=== PATIENT | male | born 1980 | race Caucasian/White ===

== ENCOUNTER 2016-10-21 21:35 | Observation (INO) | payer OTHER ==
[~2016-10-21] VITALS: Ht 180.3 cm; Wt 87.6 kg
[2016-10-22 05:54] LABS: HEMOGLOBIN 15.5 gm/dl (14.0-17.5); RED BLOOD COUNT 5.31 M/UL (4.20-5.50); WHITE BLOOD COUNT 15.1 K/UL (4.5-11.0)
[2016-10-23] MEDS ORDERED: NORCO 5-325 TA1 EACH PO (09:24)
== END 2016-10-23 11:05 | disposition home or self-care (01) ==
LOC: ER1 21:35 → M/S 22:50 → ZEROF 22:50 → M/S 10-22 01:08
PROVIDERS: ADMIT Orthopaedic Surgery
PROC: 0PSJ04Z Reposition Left Radius with Internal Fixation Device, Open Approach (ICD-10-PCS; principal; 2016-10-22 18:49)
DX: S52.502A Unspecified fracture of the lower end of left radius, initial encounter for closed fracture (principal); V38.0XXA Driver of three-wheeled motor vehicle injured in noncollision transport accident in nontraffic accident, initial encounter; Y93.I9 Activity, other involving external motion; Y92.838 Other recreation area as the place of occurrence of the external cause; H91.90 Unspecified hearing loss, unspecified ear; R47.9 Unspecified speech disturbances; F17.210 Nicotine dependence, cigarettes, uncomplicated; Z88.5 Allergy status to narcotic agent
CPT/HCPCS: 36415; 73070; 73090; 73110; 73130; 76000; 85025; 99283; C1713; G0378; J0690; J2250; J3010; J7030; J7120